=== PATIENT | female | born 1945 | race Caucasian/White ===

== ENCOUNTER 2019-07-05 14:40 | Emergency (ER) | payer MEDICARE ==
[~2019-07-05] VITALS: Ht 157.5 cm; Wt 82.7 kg
[2019-07-05 15:50] LABS: BASO # 0.1 (0.02-0.10); EOS # 0.3 (0.04-0.40); EOS % 3.4 % (1.0-5.0); HEMATOCRIT 40.3 % (37.0-47.0); HEMOGLOBIN 12.8 g/dL (12.5-16.0); LYMPH# 2.5 (1.50-4.00); MEAN CELL VOLUME 87 fl (78-100); MEAN CORPUSCULAR HEMOGLOBIN 28 pg (27-31); MEAN CORPUSCULAR HGB CONC 32 g/dL (33-37); MEAN PLATELET VOLUME 10.5 fl (7.4-10.4); MONO # 0.9 (0.20-0.80); NEU # 5.7 (1.40-6.50); PLATELET COUNT 267 K/mm3 (130-400); RED BLOOD COUNT 4.65 M/mm3 (4.10-5.30); RED CELL DISTRIBUTION WIDTH 13.9 % (11.5-14.5); WHITE BLOOD COUNT 9.6 K/mm3 (4.8-10.8)
[2019-07-05 15:52] LABS: ALBUMIN 3.7 g/dL (3.4-4.8)
[2019-07-05 15:53] LABS: POTASSIUM 3.8 mmol/L (3.5-5.1)
[2019-07-05 15:54] LABS: CALCIUM 9.2 mg/dL (8.3-10.5)
[2019-07-05 15:55] LABS: TOTAL PROTEIN 6.4 g/dL (6.2-8.1)
[2019-07-05 15:57] LABS: TOTAL BILIRUBIN 0.3 mg/dL (0.2-1.2)
[2019-07-05] MEDS ORDERED: COZAAR25 M1 PO (16:20)
[2019-07-05] MEDS ORDERED: CARVEDILOL3.125 MG PO (16:20)
[2019-07-05] MEDS ORDERED: DESYREL50 MG PO (16:21)
[2019-07-05] MEDS ORDERED: EFFEXOR XR150 M1 PO (16:21)
[2019-07-05] MEDS ORDERED: BUSPAR 15MG TAB15 MG PO (16:22)
[2019-07-05] MEDS ORDERED: LEVEMIR FLEX100 U/ML SQ (16:22)
[2019-07-05] MEDS ORDERED: PRILOSEC OTC20 MG PO (16:22)
[2019-07-05] MEDS ORDERED: CHILDREN'S ASPI81 M1 PO (16:22)
[2019-07-05] MEDS ORDERED: SYNTHROID25 MCG PO (16:23)
[2019-07-05] MEDS ORDERED: TYLENOL 325MG325 MG PO (16:23)
[2019-07-05] MEDS ORDERED: LIPITOR 10M10 MG/TAB PO (16:23)
[2019-07-05] MEDS ORDERED: CLARITIN LIQUI-10 MG PO (16:23)
[2019-07-05] MEDS ORDERED: FLONASE ALLERG9.9 ML NS (16:24)
[2019-07-05 18:52] VITALS: BP 129/63
== END 2019-07-05 19:15 | disposition home or self-care (01) ==
LOC: ED 14:40
PROVIDERS: Family Medicine
DX: R07.89 Other chest pain (principal); E11.9 Type 2 diabetes mellitus without complications; I10 Essential (primary) hypertension; E78.5 Hyperlipidemia, unspecified; Z79.4 Long term (current) use of insulin; Z79.82 Long term (current) use of aspirin; Z85.3 Personal history of malignant neoplasm of breast
CPT/HCPCS: J1644